=== PATIENT | male | born 1995 | race Native Hawaiian/Other Pacific Islander ===

== ENCOUNTER 2022-02-13 20:18 | Emergency (ER) | payer OTHER ==
[~2022-02-13] VITALS: Ht 182.9 cm; Wt 74.8 kg
[2022-02-13 21:55] VITALS: BP 124/77; TEMP 98.1
== END 2022-02-13 22:00 | disposition home or self-care (01) ==
LOC: ED 20:18
DX: S63.8X1A Sprain of other part of right wrist and hand, initial encounter (principal); S60.511A Abrasion of right hand, initial encounter; W22.8XXA Striking against or struck by other objects, initial encounter; Y92.098 Other place in other non-institutional residence as the place of occurrence of the external cause
CPT/HCPCS: 96372; 99282; 99283; J1885

== ENCOUNTER 2022-05-06 09:50 | Emergency (ER) | payer OTHER ==
[~2022-05-06] VITALS: Ht 182.9 cm; Wt 74.8 kg
[2022-05-06 10:06] VITALS: TEMP 97.6
[2022-05-06 11:35] VITALS: BP 109/66
== END 2022-05-06 11:35 | disposition home or self-care (01) ==
LOC: ED 09:50
DX: R51.9 Headache, unspecified (principal); M54.59 Other low back pain
CPT/HCPCS: 80307; 81002; 96372; 99283; J1885

== ENCOUNTER 2022-08-20 10:04 | Emergency (ER) | payer OTHER ==
[~2022-08-20] VITALS: Ht 182.9 cm; Wt 74.8 kg
[2022-08-20 10:08] VITALS: TEMP 97.66
[2022-08-20 10:38] VITALS: BP 124/84
== END 2022-08-20 10:55 | disposition home or self-care (01) ==
LOC: ED 10:04
DX: M79.18 Myalgia, other site (principal); X50.9XXA Other and unspecified overexertion or strenuous movements or postures, initial encounter; Y92.89 Other specified places as the place of occurrence of the external cause
CPT/HCPCS: 96372; 99283; J1885; J2360

== ENCOUNTER 2022-10-01 10:25 | Emergency (ER) | payer OTHER ==
[~2022-10-01] VITALS: Ht 182.9 cm; Wt 73.9 kg
[2022-10-01 10:30] VITALS: BP 103/71; TEMP 98.2
== END 2022-10-01 11:20 | disposition home or self-care (01) ==
LOC: ED 10:25
DX: K29.60 Other gastritis without bleeding (principal)
CPT/HCPCS: 87651; 99283

== ENCOUNTER 2022-12-06 09:54 | Emergency (ER) | payer OTHER ==
[~2022-12-06] VITALS: Ht 182.9 cm; Wt 74.8 kg
[2022-12-06 09:59] VITALS: BP 121/73; TEMP 98.4
== END 2022-12-06 10:40 | disposition home or self-care (01) ==
LOC: ED 09:54
DX: J06.9 Acute upper respiratory infection, unspecified (principal); J02.0 Streptococcal pharyngitis; S46.811A Strain of other muscles, fascia and tendons at shoulder and upper arm level, right arm, initial encounter; X58.XXXA Exposure to other specified factors, initial encounter; Y92.89 Other specified places as the place of occurrence of the external cause
CPT/HCPCS: 99282

== ENCOUNTER 2023-02-27 12:16 | Emergency (ER) | payer OTHER ==
[~2023-02-27] VITALS: Ht 182.9 cm; Wt 70.3 kg
[2023-02-27 12:16] VITALS: BP 123/83; TEMP 98.7
== END 2023-02-27 13:29 | disposition home or self-care (01) ==
LOC: ED 12:16
DX: S20.219A Contusion of unspecified front wall of thorax, initial encounter (principal); X58.XXXA Exposure to other specified factors, initial encounter; F17.210 Nicotine dependence, cigarettes, uncomplicated
CPT/HCPCS: 93005; 96372; 99282; J1885

== ENCOUNTER 2023-03-07 12:06 | Emergency (ER) | payer OTHER ==
[~2023-03-07] VITALS: Ht 182.9 cm; Wt 70.3 kg
[2023-03-07 13:01] LABS: PLATELET COUNT 195 K/uL (142-355)
== END 2023-03-07 14:16 | disposition home or self-care (01) ==
LOC: ED 12:06
PROVIDERS: Emergency Medicine
DX: K29.70 Gastritis, unspecified, without bleeding (principal); E86.0 Dehydration; F17.210 Nicotine dependence, cigarettes, uncomplicated
CPT/HCPCS: 36415; 80053; 83690; 85027; 96361; 96374; 96375; 99284; J2405; J3490